=== PATIENT | female | born 1990 | race African-American/Black ===

== ENCOUNTER 2019-01-28 20:55 | Emergency (ER) | payer SELFPAY ==
[~2019-01-28] VITALS: Ht 160 cm; Wt 144.0 kg
[2019-01-28] MEDS ORDERED: IBUPROFEN 600MG TABLET PO STA (23:08)
[2019-01-29 00:55] VITALS: BP 131/73
== END 2019-01-29 01:09 | disposition home or self-care (01) ==
LOC: ER 20:55
DX: S62.665A Nondisplaced fracture of distal phalanx of left ring finger, initial encounter for closed fracture (principal); F12.10 Cannabis abuse, uncomplicated; Y08.89XA Assault by other specified means, initial encounter; Y93.89 Activity, other specified; Y92.89 Other specified places as the place of occurrence of the external cause; Y99.8 Other external cause status
CPT/HCPCS: 29130; 73130; 99283